=== PATIENT | female | born 1955 | race Two or more races ===

== ENCOUNTER 2020-01-16 09:20 | Emergency (ER) | payer MEDICARE ==
[2020-01-16 09:31] VITALS: BP 150/82
--- NOTE | 2020-01-16 10:03 | RADIOLOGY REPORT (SQ) ---
EXAM DESCRIPTION: WRIST LEFT 3 VIEWS IMAGES COMPLETED DATE/TIME: 01/16/2020 9:50 am REASON FOR STUDY: fall on to outstretched hand. Pt has + deformity COMPARISON: None. NUMBER OF VIEWS: Three views. TECHNIQUE: AP, lateral, and oblique radiographic images acquired of the left wrist. LIMITATIONS: None. FINDINGS: MINERALIZATION: Normal. BONES: Acute transverse comminuted and extra-articular fracture of the distal radius with mild dorsal angulation. There is no other fracture. The distal radioulnar joint is in anatomic alignment. SOFT TISSUES: Soft tissue swelling over the carpal bones. OTHER: No other findings. IMPRESSION: Acute transverse comminuted and extra-articular fracture of the distal radius with mild dorsal angulation. TECHNICAL DOCUMENTATION: JOB ID: [id number] [employer]- All Rights Reserved Reading location - IP/workstation name: [email or web address]
[2020-01-16] MEDS ORDERED: IBUPROFEN 600 MG TABLET PO ONE (11:03)
--- NOTE | 2020-01-16 11:07 | ER Document Report ---
HPI - HPI Time Seen by Provider: 01/16/20 10:37 Pain Level: 4 Notes: 64-year-old female patient presenting to the emergency department chief complaint of left wrist pain. Patient reports yesterday she tripped and fell. She is French-speaking. Her daughters at the bedside. She also reports some pain to her right shoulder. Patient did not seek treatment yesterday as she thought that her wrist was sprained. - ROS Systems Reviewed and Negative: Yes All other systems reviewed and negative - MUSCULOSKELETAL Musculoskeletal: REPORTS: Extremity pain Past Medical History - General Information source: Patient - Social History Smoking Status: Never Smoker Family History: None Patient has homicidal ideation: No - Medical History Medical History: Negative Past Surgical History: Reports: Hx Section Vertical Provider Document - CONSTITUTIONAL Notes: PHYSICAL EXAMINATION: GENERAL: Well-appearing, well-nourished and in no acute distress. HEAD: Atraumatic, normocephalic. EYES: Pupils equal round extraocular movements intact, conjunctiva are normal. ENT: Nares patent NECK: Normal range of motion LUNGS: No respiratory distress Musculoskeletal: Limited range of motion to left wrist secondary to pain and swelling. Left wrist appears very swollen, appears to have a dislocation. St lady radial pulse. Cap refill less than 3 seconds. Normal motor and sensation distal to injury. Full range of motion of right shoulder, no crepitus on palpation. No pain on palpation. NEUROLOGICAL: Normal speech, normal gait. PSYCH: Normal mood, normal affect. SKIN: Warm, Dry, normal turgor, no rashes or lesions noted. Course - Re-evaluation Re-evalutation: Wrist X-Ray 01/16/20 00:00 IMPRESSION: Acute transverse comminuted and extra-articular fracture of the distal radius with mild dorsal angulation. 01/16/20 11:06 Paged on-call orthopedist, Dr. Obregon through the header setup operator. I initially asked for Dr. Siddiqi however the header setup operator informs me Dr. Obregon is the one sewer connector. 01/16/20 11:[address] Obregon, he will see the patient tomorrow in his [place] office. - Vital Signs Vital signs: Temp Pulse Resp BP Pulse Ox 98.1 F 73 16 150/82 H 100 01/16/20 09:30 01/16/20 09:30 01/16/20 09:30 01/16/20 09:30 01/16/20 09:30 Procedures - Immobilization Left wrist Pre-Proc Neuro Vasc Exam: Normal Immobilizer type: Volar splint, Sling Performed by: PCT Post-Proc Neuro Vasc Exam: Normal Discharge - Discharge Clinical Impression: Distal radius fracture Qualifiers: Encounter type: initial encounter Fracture type: closed Fracture morphology: unspecified fracture morphology Laterality: left Qualified Code(s): S52.502A - Unspecified fracture of the lower end of left radius, initial encounter for closed fracture Condition: Stable Disposition: HOME, SELF-CARE Additional Instructions: Keep the splint in place until seen by ortho. Ice, elevate, take ibuprofen or acetaminophen for pain. Use the Delta for severe pain only. Follow-up with Dr. Obregon in his office in [place] tomorrow, call today to schedule an appointment. Referrals: LEFTY OBREGON, [ACTIVE STAFF] - Follow up as needed
[2020-01-16] MEDS ORDERED: HYDROCODONE/ACETAMINOPHEN 5-325 MG (6 TAB/ER DISP) PO PRN (11:40)
== END 2020-01-16 11:55 | disposition home or self-care (01) ==
LOC: ER 09:20
DX: M25.532 Pain in left wrist (principal); S52.552A Other extraarticular fracture of lower end of left radius, initial encounter for closed fracture; W19.XXXA Unspecified fall, initial encounter
CPT/HCPCS: 99284; 73110; 29125; A9270 ×2